=== PATIENT | male | born 1985 | race Caucasian/White ===

== ENCOUNTER 2017-07-24 18:07 | Emergency (ER) | payer BC, OTHER ==
[~2017-07-24] VITALS: Ht 170.2 cm; Wt 65.9 kg
[~2017-07-24 18:07] MED LIST: IBUP800 PO; Z.0.NO CURRENT MEDS
[2017-07-24 18:15] VITALS: BP 138/77; PULSE 69; RESP 18; TEMP 97.6; O2SAT 100
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
[2017-07-24] MEDS ORDERED: CYCL10TA PO (20:25)
[2017-07-24] MEDS ORDERED: NAPR500 PO (20:25)
== END 2017-07-24 20:44 | disposition home or self-care (01) ==
LOC: NEPK 18:07
DX: S16.1XXA Strain of muscle, fascia and tendon at neck level, initial encounter (principal); S63.501A Unspecified sprain of right wrist, initial encounter; S50.811A Abrasion of right forearm, initial encounter; R51 Headache; V89.2XXA Person injured in unspecified motor-vehicle accident, traffic, initial encounter; W22.11XA Striking against or struck by driver side automobile airbag, initial encounter
CPT/HCPCS: 70450; 72125; 73110; 99284; L3908